=== PATIENT | female | born 1940 | race Caucasian/White ===

== ENCOUNTER → 2018-05-25 | Outpatient (CLI) | payer MEDICARE, OTHER ==
[2018-05-25 10:53] LABS: ABSOLUTE BASOPHILS # (AUTO) 0.1 10^3/uL (0.0-0.2); ABSOLUTE EOSINOPHILS # (AUTO) 0.6 10^3/uL (0.0-0.6); ABSOLUTE LYMPHOCYTES (AUTO) 1.1 10^3/uL (0.5-4.7); ABSOLUTE MONOCYTES (AUTO) 0.5 10^3/uL (0.1-1.4); ABSOLUTE NEUT (AUTO) 2.8 10^3/uL (1.7-8.2); BASOPHILS % (AUTO) 1.2 % (0-2); EOSINOPHILS % (AUTO) 11.8 % (0-6); HEMOGLOBIN 13.3 g/dL (12.0-15.5); LYMPHOCYTES % (AUTO) 21.5 % (13-45); MEAN CORPUSCULAR HEMOGLOBIN 29.5 pg (27.0-33.4); MEAN CORPUSCULAR HGB CONC 33.2 g/dL (32.0-36.0); MEAN CORPUSCULAR VOLUME 89 fl (80-97); MONOCYTES % (AUTO) 9.5 % (3-13); PLATELET COUNT 232 10^3/uL (150-450); RED CELL DISTRIBUTION WIDTH 13.7 % (11.5-14.0); TOTAL CELLS COUNTED % (AUTO) 100 %
[2018-05-25 11:10] LABS: ALANINE AMINOTRANSFERASE 29 U/L (9-52); ALKALINE PHOSPHATASE 80 U/L (38-126); ANION GAP 13 (5-19); ASPARTATE AMINO TRANSFERASE 26 U/L (14-36); BILIRUBIN,DIRECT 0.3 mg/dL (0.0-0.4); BILIRUBIN,TOTAL 0.5 mg/dL (0.2-1.3); BLOOD UREA NITROGEN 20 mg/dL (7-20); CALCIUM 9.3 mg/dL (8.4-10.2); CARBON DIOXIDE 26 mmol/L (22-30); CHLORIDE 109 mmol/L (98-107); CHOLESTEROL 245.32 mg/dL (0-200); GLUCOSE 104 mg/dL (75-110); IRON 80.4 ug/dL (37-170); POTASSIUM 4.6 mmol/L (3.6-5.0); SODIUM 147.8 mmol/L (137-145); TRIGLYCERIDES 223 mg/dL (<150)
[2018-05-25 11:21] LABS: DIRECT LDL 165 mg/dL (<100)
[2018-05-25 11:25] LABS: VLDL CHOLESTEROL 44.6 mg/dL (10-31)
[2018-05-25 11:30] LABS: ERYTHROCYTE SEDIMENTATION RATE 49 mm/hr (0-30)
== END ==
LOC: LAB 10:04
PROVIDERS: ATTEND Internal Medicine
DX: I25.811 Atherosclerosis of native coronary artery of transplanted heart without angina pectoris (principal); I10 Essential (primary) hypertension; D50.9 Iron deficiency anemia, unspecified; J42 Unspecified chronic bronchitis; Z68.28 Body mass index [BMI] 28.0-28.9, adult
CPT/HCPCS: 36415; 80053; 80061; 82306; 83540; 83735; 84443; 85025; 85652

== ENCOUNTER → 2018-06-02 | Outpatient (CLI) | payer MEDICARE, OTHER ==
--- NOTE | 2018-06-02 11:18 | WOMENS IMAGING REPORT ---
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 TECHNIQUE: Dual-Energy X-ray Absorptiometry (DEXA) of the AP Spine and Hip. LIMITATIONS: None. FINDINGS: LUMBAR SPINE: The bone mineral density (BMD) measured from L1-L4 in the AP projection correlates with a T-score of -0.4, which is normal as defined by the World Health Organization. HIP: The bone mineral density (BMD) measured in the left hip correlates with a T-score of -2.4, which is o steopenia as defined by the World Health Organization. IMPRESSION: 1. LUMBAR SPINE: Normal 2. HIP: Osteopenia COMMENT: The World Health Organization defines low BMD as follows: T-score: Normal: Greater than -1.0 Osteopenia: Between -1.0 and -2.5 Osteoporosis: Less than -2.5 without fractures Established osteoporosis: Less than -2.5 with fractures In general, you may wish to consider: Diagnosis Treatment Follow-up DEXA Normal BMD Prevention 2-3 years Osteopenia Prevention/Therapy 1-2 years Osteoporosis Therapy Yearly TECHNICAL DOCUMENTATION: JOB ID: [id number] [employer]- All Rights Reserved Reading location - IP/workstation name: [email or web address]
--- NOTE | 2018-06-02 12:08 | WOMENS IMAGING REPORT ---
EXAM DESCRIPTION: BILAT SCREENING MAMMO W/CAD COMPLETED DATE/TIME: 06/02/2018 11:00 am REASON FOR STUDY: SCREENING MAMMO Z12.31 ENCNTR SCREEN MAMMOGRAM FOR MALIGNANT NEOPLASM OF TRUDY M81. 0 AGE-RELATED OSTEOPOROSIS W/O CURRENT PATHOLOGICAL FRAC COMPARISON: None. TECHNIQUE: Standard craniocaudal and mediolateral oblique views of each breast recorded using digita l acquisition. LIMITATIONS: None. FINDINGS: No masses, calcifications or architectural distortion. No areas of suspicion. Read with the assistance of CAD. .[facility] R2 Cenova Version 1.3 .[facility] Imaging - R2 Cenova Version 1.3 .[facility] Imaging - R2 Cenova Version 2.4 .[facility] [place] Cenova Version 2.4 .[facility] - R2 Clinical Counselor Version 9.2 IMPRESSION: NORMAL MAMMOGRAM. BIRADS 1. BREAST DENSITY: b. There are scattered areas of fibroglandular density. BIRAD: 1 NEGATIVE RECOMMENDATION: ROUTINE SCREENING COMMENT: The patient has been notified of the results by letter per MQSA requirements. Additional no tification policies are in place for contacting patient with suspicious or incomplete findings. Quality ID #225: The [employer] recommends an annual screening mammogram for women aged 40 years or over. This facility utilizes a reminder system to ensure that all patients receive reminder letters, and/or direct phone calls for appointments. This includes reminders for routine scr eening mammograms, diagnostic mammograms, or other Breast Imaging Interventions when appropriate. Th is patient will be placed in the appropriate reminder system. The [employer] (ACR) has developed recommendations for screening MRI of the breast s in certain patient populations, to be used in conjunction with mammography. Breast MRI surveillanc e may be appropriate for women with more than 20% lifetime risk of developing breast cancer as deter mined by genetic testing, significant family history of the disease, or history of mantle radiation f or Hodgkins Disease. ACR Practice Guidelines 2008. TECHNICAL DOCUMENTATION: FINDING NUMBER: (1) ASSESSMENT: (1) JOB ID: [id number] [employer]- All Rights Reserved Reading location - IP/workstation name: [email or web address]
== END ==
LOC: WI 09:15
PROVIDERS: ATTEND Internal Medicine
DX: Z12.31 Encounter for screening mammogram for malignant neoplasm of breast (principal); M81.0 Age-related osteoporosis without current pathological fracture
CPT/HCPCS: 77067; 77080

== ENCOUNTER → 2018-11-11 | Outpatient (CLI) | payer MEDICARE, OTHER ==
[2018-11-11 11:33] LABS: ALANINE AMINOTRANSFERASE 13 U/L (9-52); ALBUMIN 3.9 g/dL (3.5-5.0); ALKALINE PHOSPHATASE 90 U/L (38-126); ASPARTATE AMINO TRANSFERASE 21 U/L (14-36); BILIRUBIN,DIRECT 0.3 mg/dL (0.0-0.4); BILIRUBIN,TOTAL 0.5 mg/dL (0.2-1.3); CHOLESTEROL 267.35 mg/dL (0-200); TOTAL PROTEIN 7.5 g/dL (6.3-8.2); TRIGLYCERIDES 230 mg/dL (<150)
[2018-11-11 11:45] LABS: DIRECT LDL 172 mg/dL (<100)
[2018-11-11 12:41] LABS: CHOLESTEROL 267.35 mg/dL (0-200); DIRECT LDL 172 mg/dL (<100); TRIGLYCERIDES 230 mg/dL (<150)
== END ==
LOC: OD 09:58
PROVIDERS: ATTEND Specialist
DX: I25.10 Atherosclerotic heart disease of native coronary artery without angina pectoris (principal); I25.2 Old myocardial infarction; I10 Essential (primary) hypertension; E78.5 Hyperlipidemia, unspecified; J44.9 Chronic obstructive pulmonary disease, unspecified; I73.9 Peripheral vascular disease, unspecified; E78.49 Other hyperlipidemia; K21.9 Gastro-esophageal reflux disease without esophagitis; Z86.711 Personal history of pulmonary embolism
CPT/HCPCS: 36415; 80061; 80076; 82306; 84443

== ENCOUNTER 2018-12-14 07:32 | Day surgery (SDC) | payer MEDICARE, OTHER ==
[~2018-12-14 07:32] MED LIST: DORZOLAMIDE HCL 2%/TIMOLOL MALEAT 0.5% OPH SOLN 10 ML OS PRN; FENTANYL CITRATE INJ/PF 100 MCG/2 ML AMPUL ONE; KETOROLAC TROMETHAMINE 0.45% 4 DROP/0.4 ML DROPERETTE OS PRN; MIDAZOLAM 2 MG/2 ML INJ ONE
[2018-12-14] MEDS: CYCLOPENTOLATE 0.2%/PHENYLEPHRINE 1% OPH SOLN 2 ML OS PRN ×3 (07:58→08:18)
[2018-12-14] MEDS: BESIFLOXACIN HCL 0.6% OPH SUSP 5 ML BOTTLE OS PRN ×4 (07:58→09:26)
[2018-12-14] MEDS: TROPICAMIDE 1% OPH SOLN 3 ML OS PRN ×3 (07:58→08:18)
[2018-12-14] MEDS: TETRACAINE HCL 0.5% OPH SOLN 4 ML OS PRN ×3 (07:59→09:01)
[2018-12-14] MEDS ORDERED: LIDOCAINE 1% INJ-PF (10 MG/ML) 30 ML SDV ONE (08:12)
[2018-12-14] MEDS ORDERED: CHONDR SU A NA/HYALUR INTRAOC KIT (SURGICARE) ONE (08:12)
[2018-12-14] MEDS ORDERED: EPINEPHRINE INJ/PF 1 MG/1 ML AMPULE ONE (08:12)
--- NOTE | 2018-12-14 21:33 | SURGICARE DISCHARGE SUMMARY E ---
[facility] Discharge Summary NAME: KIESHA CORRALES AGE: 78Y ADMITTED: 12/14/2018 DISCHARGED: 12/14/2018 This is a 78-year-old female who underwent cataract extraction of the left eye. DIAGNOSIS: Cataract, left eye. She underwent surgery because she was having difficulty driving at night secondary to glare from headlights. She should be on a regular diet. No bending at the waist and no heavy lifting. She should use his Besivance, Prolensa, and Durezol at 3:00 p.m. and 8:00 p.m. and sleep with a rigid shield. I will see her for her 1-day postop tomorrow. DICTATING PHYSICIAN: XUAN PINTO M.D. [id number] PHY#: [id number] ID: [id number] JOB#: [id number] ACCT: [id number] cc:XUAN PINTO M.D. >
--- NOTE | 2018-12-14 21:33 | SURGICARE OPERATIVE REPORT E ---
[facility] Operative Report NAME: KIESHA CORRALES AGE: 78Y DATE OF SURGERY: 12/14/2018 ROOM: PREOPERATIVE DIAGNOSIS: CATARACT, LEFT EYE. POSTOPERATIVE DIAGNOSIS: CATARACT, LEFT EYE. OPERATION: Cataract extraction with insertion of an IOL of the left eye. SURGEON: XUAN PINTO M.D. ANESTHESIA: Topical. PROCEDURE: After obtaining appropriate consent, the patient's left eye was prepped and draped in sterile fashion as well as the surgeon in a sterile manner and cataract surgery was started. First a paracentesis blade was used to make a side-port incision. Viscoelastic was used to inflate the anterior chamber. Next a 2.4 mm incision was made with a 2.4 mm blade, clear corneal temporally. A continuous capsulorrhexis was made using a cystotome and Utrata forceps. Following this hydrodissection was carried out to make the lens fully loose and mobile and it was rotated 90 degrees. Following this, a vlymoz-vit-xwadxxv technique was used to phacoemulsify the lens with a CDE of 10.16. The remaining cortex was removed with irrigation/aspiration. Provisc was instilled into the capsular bag to inflate the bag. A SN60WF, 20.5 diopter lens was placed. The remaining viscoelastic material was removed with irrigation/aspiration. Following this, the incision was found to be watertight. Besivance was instilled into the eye and a protective shield was placed over the eye. The patient returned to the postoperative recovery in stable condition. DICTATING PHYSICIAN: XUAN PINTO M.D. [id number] PHY#: [id number] ID: [id number] JOB#: [id number] ACCT: [id number] cc:XUAN PINTO M.D. >
== END 2018-12-14 10:18 | disposition home or self-care (01) ==
LOC: SC 07:32
PROVIDERS: ATTEND Internal Medicine
DX: H25.813 Combined forms of age-related cataract, bilateral (principal); H43.813 Vitreous degeneration, bilateral; H04.121 Dry eye syndrome of right lacrimal gland; E78.00 Pure hypercholesterolemia, unspecified; J44.9 Chronic obstructive pulmonary disease, unspecified; I25.2 Old myocardial infarction; I11.9 Hypertensive heart disease without heart failure; D64.9 Anemia, unspecified; G62.9 Polyneuropathy, unspecified; Z87.891 Personal history of nicotine dependence; Z88.8 Allergy status to other drugs, medicaments and biological substances; Z88.0 Allergy status to penicillin; Z88.3 Allergy status to other anti-infective agents; Z79.51 Long term (current) use of inhaled steroids; Z79.899 Other long term (current) drug therapy; Z79.01 Long term (current) use of anticoagulants; Z79.82 Long term (current) use of aspirin
CPT/HCPCS: 66984; V2632; J2250; J3490 ×3; A9270; J0171; J3010

== ENCOUNTER 2019-01-07 06:31 | Day surgery (SDC) | payer MEDICARE, OTHER ==
[~2019-01-07 06:31] MED LIST changes: -DORZOLAMIDE HCL 2%/TIMOLOL MALEAT 0.5% OPH SOLN 10 ML OS PRN; -FENTANYL CITRATE INJ/PF 100 MCG/2 ML AMPUL ONE; +KETOROLAC TROMETHAMINE 0.45% 4 DROP/0.4 ML DROPERETTE OD PRN; -KETOROLAC TROMETHAMINE 0.45% 4 DROP/0.4 ML DROPERETTE OS PRN; -MIDAZOLAM 2 MG/2 ML INJ ONE
[2019-01-07] MEDS: TROPICAMIDE 1% OPH SOLN 3 ML OD PRN ×3 (06:45→07:08)
[2019-01-07] MEDS: BESIFLOXACIN HCL 0.6% OPH SUSP 5 ML BOTTLE OD PRN ×4 (06:46→07:48)
[2019-01-07] MEDS: CYCLOPENTOLATE 0.2%/PHENYLEPHRINE 1% OPH SOLN 2 ML OD PRN ×3 (06:46→07:08)
[2019-01-07] MEDS: TETRACAINE HCL 0.5% OPH SOLN 4 ML OD PRN ×3 (06:47→07:26)
[2019-01-07] MEDS ORDERED: ONDANSETRON HCL INJ/PF 4 MG/2 ML SDV ONE (07:04)
[2019-01-07] MEDS ORDERED: FENTANYL CITRATE INJ/PF 100 MCG/2 ML AMPUL ONE (07:04)
[2019-01-07] MEDS ORDERED: MIDAZOLAM 2 MG/2 ML INJ ONE (07:04)
[2019-01-07] MEDS ORDERED: EPINEPHRINE INJ/PF 1 MG/1 ML AMPULE ONE (07:05)
[2019-01-07] MEDS ORDERED: CHONDR SU A NA/HYALUR INTRAOC KIT (SURGICARE) ONE (07:06)
[2019-01-07] MEDS ORDERED: LIDOCAINE 1% INJ-PF (10 MG/ML) 30 ML SDV ONE (07:06)
[2019-01-07] MEDS: DORZOLAMIDE HCL 2%/TIMOLOL MALEAT 0.5% OPH SOLN 10 ML OD PRN ×2 (07:48)
--- NOTE | 2019-01-07 21:33 | SURGICARE DISCHARGE SUMMARY E ---
[facility] Discharge Summary NAME: KIESHA CORRALES AGE: 78Y ADMITTED: 01/07/2019 DISCHARGED: This is a 78-year-old female who underwent cataract extraction of her right eye. DIAGNOSIS: Cataract right eye. She underwent surgery because she was having trouble seeing small print. She should be on a regular diet. No bending at the waist and no heavy lifting. She should use her Besivance, Prolensa, and Durezol at 3:00 p.m. and 8:00 p.m. and sleep with a rigid shield. I will see her for her 1-day postop tomorrow. DICTATING PHYSICIAN: XUAN PINTO M.D. [id number] PHY#: [id number] ID: [id number] JOB#: [id number] ACCT: [id number] cc:XUAN PINTO M.D. >
--- NOTE | 2019-01-07 21:33 | [facility]ARE OPERATIVE REPORT E ---
[facility] Operative Report NAME: KIESHA CORRALES AGE: 78Y DATE OF SURGERY: 01/07/2019 ROOM: PREOPERATIVE DIAGNOSIS: CATARACT, RIGHT EYE. POSTOPERATIVE DIAGNOSIS: CATARACT, RIGHT EYE. OPERATION: Cataract extraction with insertion of an IOL of the right eye. SURGEON: XUAN PINTO M.D. ANESTHESIA: Topical. PROCEDURE: After obtaining appropriate consent, the patient's right eye was prepped and draped in sterile fashion as well as the surgeon in a sterile manner and cataract surgery was started. First a paracentesis blade was used to make a side-port incision. Viscoelastic was used to inflate the anterior chamber. Next a 2.4 mm incision was made with a 2.4 mm blade, clear corneal temporally. A continuous capsulorrhexis was made using a cystotome and Utrata forceps. Following this hydrodissection was carried out to make the lens fully loose and mobile and it was rotated 90 degrees. Following this, a xohvrk-fxo-mjisuph technique was used to phacoemulsify the lens with a CDE of 15.11. The remaining cortex was removed with irrigation/aspiration. Provisc was instilled into the capsular bag to inflate the bag. A SN60WF, 20.5 diopter lens was placed. The remaining viscoelastic material was removed with irrigation/aspiration. Following this, the incision was found to be watertight. Besivance was instilled into the eye and a protective shield was placed over the eye. The patient returned to the postoperative recovery in stable condition. DICTATING PHYSICIAN: XUAN PINTO M.D. [id number] PHY#: [id number] ID: [id number] JOB#: [id number] ACCT: [id number] cc:XUAN PINTO M.D. >
== END 2019-01-07 08:25 | disposition home or self-care (01) ==
LOC: SC 06:31
PROVIDERS: ATTEND Internal Medicine
DX: H25.811 Combined forms of age-related cataract, right eye (principal); Z96.1 Presence of intraocular lens; I10 Essential (primary) hypertension; I25.2 Old myocardial infarction; D64.9 Anemia, unspecified; Z79.01 Long term (current) use of anticoagulants; G57.93 Unspecified mononeuropathy of bilateral lower limbs; Z88.8 Allergy status to other drugs, medicaments and biological substances
CPT/HCPCS: 66984; V2632; J2250; J3490 ×3; A9270; J0171; J3010; J2405; 142

== ENCOUNTER → 2019-02-02 | Outpatient (CLI) | payer MEDICARE, OTHER ==
[2019-02-02 14:21] LABS: CHOLESTEROL 252.52 mg/dL (0-200); TRIGLYCERIDES 217 mg/dL (<150)
[2019-02-02 14:33] LABS: DIRECT LDL 150 mg/dL (<100); VLDL CHOLESTEROL 43.4 mg/dL (10-31)
== END ==
LOC: OD 11:54
PROVIDERS: ATTEND Internal Medicine
DX: E78.5 Hyperlipidemia, unspecified (principal)
CPT/HCPCS: 36415; 80061

== ENCOUNTER 2019-05-07 06:49 | Observation (INO) | payer MEDICARE, OTHER ==
[2019-05-07] MEDS ORDERED: ASPIRIN 81 MG TABLET, CHEWABLE PO ONE (07:02)
[2019-05-07 07:50] LABS: ABSOLUTE BASOPHILS # (AUTO) 0.1 10^3/uL (0.0-0.2); ABSOLUTE EOSINOPHILS # (AUTO) 0.9 10^3/uL (0.0-0.6); ABSOLUTE LYMPHOCYTES (AUTO) 0.9 10^3/uL (0.5-4.7); ABSOLUTE MONOCYTES (AUTO) 0.5 10^3/uL (0.1-1.4); ABSOLUTE NEUT (AUTO) 4.6 10^3/uL (1.7-8.2); EOSINOPHILS % (AUTO) 12.5 % (0-6); HEMATOCRIT 38.9 % (36.0-47.0); HEMOGLOBIN 12.9 g/dL (12.0-15.5); LYMPHOCYTES % (AUTO) 12.7 % (13-45); MEAN CORPUSCULAR HEMOGLOBIN 29.4 pg (27.0-33.4); MEAN CORPUSCULAR HGB CONC 33.1 g/dL (32.0-36.0); MEAN CORPUSCULAR VOLUME 89 fl (80-97); MONOCYTES % (AUTO) 6.8 % (3-13); PLATELET COUNT 203 10^3/uL (150-450); RED BLOOD COUNT 4.38 10^6/uL (3.72-5.28); RED CELL DISTRIBUTION WIDTH 13.3 % (11.5-14.0); TOTAL CELLS COUNTED % (AUTO) 100 %; WHITE BLOOD COUNT 6.8 10^3/uL (4.0-10.5)
--- NOTE | 2019-05-07 08:01 | RADIOLOGY REPORT (SQ) ---
EXAM DESCRIPTION: CHEST SINGLE VIEW COMPLETED DATE/TIME: 05/07/2019 7:38 am REASON FOR STUDY: CP COMPARISON: None. EXAM PARAMETERS: NUMBER OF VIEWS: One view. TECHNIQUE: Single frontal radiographic view of the chest acquired. RADIATION DOSE: NA LIMITATIONS: None. FINDINGS: LUNGS AND PLEURA: Heterogeneous opacity of the left lung base. MEDIASTINUM AND HILAR STRUCTURES: No masses. Contour normal. HEART AND VASCULAR STRUCTURES: Cardiomegaly. BONES: No acute findings. HARDWARE: None in the chest. OTHER: No other significant finding. IMPRESSION: Heterogeneous opacity of the left lung base, concerning for infection or aspiration. Th is may be chronic scarring or atelectasis. Cardiomegaly. TECHNICAL DOCUMENTATION: JOB ID: [id number] [employer]- All Rights Reserved Reading location - IP/workstation name: [email or web address]
[2019-05-07 08:26] LABS: ALANINE AMINOTRANSFERASE 24 U/L (9-52); ALBUMIN 3.5 g/dL (3.5-5.0); ALKALINE PHOSPHATASE 68 U/L (38-126); ANION GAP 7 (5-19); ASPARTATE AMINO TRANSFERASE 34 U/L (14-36); BILIRUBIN,DIRECT 0.3 mg/dL (0.0-0.4); BILIRUBIN,TOTAL 0.8 mg/dL (0.2-1.3); BLOOD UREA NITROGEN 22 mg/dL (7-20); CARBON DIOXIDE 24 mmol/L (22-30); CHLORIDE 110 mmol/L (98-107); CREATINE KINASE 253 U/L (30-135); GLUCOSE 119 mg/dL (75-110); POTASSIUM 4.4 mmol/L (3.6-5.0); SODIUM 141.1 mmol/L (137-145); TOTAL PROTEIN 7.2 g/dL (6.3-8.2)
[2019-05-07 08:28] LABS: TROPONIN I < 0.012 ng/mL
--- NOTE | 2019-05-07 12:58 | ER Document Report ---
Entered by RIDDHI GUEVARA SCRIBE 05/07/19 1123 Acting as scribe for:TAMI POTTS MD ED General - General Chief Complaint: Chest Pain Stated Complaint: CHEST PAIN Time Seen by Provider: 05/07/19 09:18 Information source: Patient Notes: Patient is a 78-year-old female presenting to the emergency department complaining of chest pain. Patient states that she woke up this morning at 0300 with chest pain that was constant. Patient states that since she has been in the emergency department the pain is intermittent. Patient states that she took melena, a medication she normally takes in this situation to alleviate the pain but it did not help. Patient states that she had cold sweats post taking the melena for 5 minutes and then it went away. Patient states that she has had nausea and has been vomiting, she notes that her vomit was clear. Patient states that after having a hiatal hernia she took Protonix for and she is currently not taking it. Patient denies having any feeling of pressure on her chest. TRAVEL OUTSIDE OF THE [place] IN LAST 30 DAYS: No - Related Data Allergies/Adverse Reactions: amoxicillin Allergy (Severe, Verified 05/07/19 07:01) clavulanic acid [From Augmentin] Allergy (Severe, Verified 05/07/19 07:01) ipratropium Allergy (Severe, Verified 05/07/19 07:01) ciprofloxacin [From Cipro] Allergy (Intermediate, Verified 05/07/19 07:01) ezetimibe [From Zetia] Allergy (Intermediate, Verified 05/07/19 07:01) simvastatin Allergy (Intermediate, Verified 05/07/19 07:01) clarithromycin [From Biaxin] Adverse Reaction (Mild, Verified 05/07/19 07:01) lisinopril Adverse Reaction (Mild, Verified 05/07/19 07:01) Past Medical History - General Information source: Patient - Social History Smoking Status: Former Smoker - Quit in 2014 Cigarette use (# per day): No Chew tobacco use (# tins/day): No Smoking Education Provided: No Frequency of alcohol use: None Drug Abuse: None Lives with: Family Family History: Reviewed & Not Pertinent Patient has suicidal ideation: No Patient has homicidal ideation: No - Past Medical History Cardiac Medical History: Reports: Hx Heart Attack, Hx Hypercholesterolemia, Hx Hypertension Pulmonary Medical History: Reports: Hx COPD - Patient states that 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 tuck 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 mentioned to monitor left lower lung GI Medical History: Reports: Hx Hiatal Hernia Past Surgical History: Reports: Hx Cardiac Catheterization, Hx Cholecystectomy, Hx Coronary Stent - 1 performed in 2011, 1 performed in 2014 Review of Systems - Review of Systems Constitutional: No symptoms reported EENT: No symptoms reported Cardiovascular: See HPI, Chest pain Respiratory: No symptoms reported Gastrointestinal: See HPI, Nausea, Vomiting Genitourinary: No symptoms reported Female Genitourinary: No symptoms reported Musculoskeletal: No symptoms reported Skin: No symptoms reported Hematologic/Lymphatic: No symptoms reported Neurological/Psychological: No symptoms reported -: Yes All other systems reviewed and negative Physical Exam - Vital signs Vitals: Temp Resp BP Pulse Ox 97.7 F 17 164/75 H 92 05/07/19 06:55 05/07/19 06:55 05/07/19 06:55 05/07/19 06:55 - Notes Notes: Physical Exam: General: Alert, appears well. HEENT: Normocephalic. Atraumatic. PERRL. Extraocular movements intact. Oropharynx clear. Neck: Supple. Non-tender. Respiratory: No respiratory distress. Clear and equal breath sounds bilaterally. Cardiovascular: Regular rate and rhythm. Abdominal: Epigastric tenderness to palpation. No distension. Normal Bowel Sounds. Back: Non-tender. No deformity or step off. Extremities: Moves all four extremities. Upper extremities: Normal inspection. Normal ROM. Lower extremities: Normal inspection. No edema. Normal ROM. Neurological: Normal cognition. AAOx4. Normal speech. Psychological: Normal affect. Normal Mood. Skin: Warm. Dry. Normal color. Course - Vital Signs Vital signs: Temp Pulse Resp BP Pulse Ox 97.9 F 69 17 143/96 H 93 05/08/19 10:00 05/08/19 10:00 05/08/19 10:00 05/08/19 10:00 05/08/19 10:00 - Laboratory Result Diagrams: 05/08/19 01:49 05/08/19 01:49 Laboratory results interpreted by me: 05/07/19 05/07/19 07:25 07:25 Lymphocytes % 12.7 L Eosinophils % 12.5 H Absolute Eosinophils 0.9 H Chloride 110 H BUN 22 H Est GFR (Non-Af Amer) 53 L Glucose 119 H Creatine Kinase 253 H - Diagnostic Test Radiology reviewed: Image reviewed, Reports reviewed Discharge - Discharge Clinical Impression: Chest pain Qualifiers: Chest pain type: unspecified Qualified Code(s): R07.9 - Chest pain, unspecified Coronary artery disease Qualifiers: Coronary Disease-Associated Artery/Lesion type: unspecified vessel or lesion type [place] vs. transplanted heart: [place] heart Associated angina: angina presence unspecified Qualified Code(s): I25.10 - Atherosclerotic heart disease of [place] coronary artery without angina pectoris Condition: Good Disposition: ADMITTED INPATIENT Admitting Provider: Bradley (Hospitalist) Unit Admitted: Telemetry Scribe Attestation: 05/07/19 13:12 I personally performed the services described in the documentation, reviewed and edited the documentation which was dictated to the scribe in my presence, and it accurately records my words and actions. I personally performed the services described in the documentation, reviewed and edited the documentation which was dictated to the scribe in my presence, and it accurately records my words and actions.
[2019-05-07] MEDS ORDERED: ONDANSETRON HCL INJ/PF 4 MG/2 ML SDV IV PRN (13:45)
[2019-05-07] MEDS ORDERED: LEVALBUTEROL HCL NEB 0.63 MG/3 ML AMPUL NEB PRN (13:45)
[2019-05-07] MEDS ORDERED: ALBUTEROL SULFATE HFA (90 MCG/PUFF) 200 PUFF/8.5 GM MDI IH PRN (13:53)
--- NOTE | 2019-05-07 14:05 | PDOC H&P ---
History of Present Illness Admission Date/PCP: 05/07/19 13:22 BRIDGETTE HOLDER MD Patient complains of: Chest pain History of Present Illness: KIESHA CORRALES is a 78 year old female with history of TN and stent placements twice hypertension severe peripheral vascular disease hyperlipidemia, hiatal hernia came to the emergency room complaints of chest pains. Initially she thought it was abdominal pain and pain that radiated to the epigastrium to the left-sided chest she decided to came to the emergency room for further evaluation. In the emergency room 2 sets of troponins are negative EKG no acute abnormalities. Medical consult was called for admission to rule out TN. 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 to monitor left lower lung Denies: Asthma Neurological Medical History: Denies: Seizures GI Medical History: Reports: Hiatal Hernia Denies: Hepatitis Hematology: Reports: Anemia - IRON Denies: Sickle Cell Disease Past Surgical History Past Surgical History: Reports: Cardiac Catheterization, Cholecystectomy, Coronary Stent - 1 performed in 2011, 1 performed in 2014 Denies: Amputation, Hysterectomy, Mastectomy, Pacemaker Social History Smoking Status: Former Smoker - Quit in 2014 Frequency of Alcohol Use: None Drugs: None - Advance Directive Resuscitation Status: Full Code Family History Parental Family History Reviewed: Yes - Mother with liver cancer in father with prostate cancer. Children Family History Reviewed: Yes Sibling(s) Family History Reviewed.: Yes Medication/Allergy Home Medications: Albuterol Sulfate [Proair HFA Inhalation Aerosol 8.5 gm MDI] 2 puff IH Q6HP PRN 05/07/19 Apixaban [Eliquis 5 mg Tablet] 5 mg PO BID 05/07/19 Aspirin [Aspirin 81 mg Chewable Tablet] 81 mg PO DAILY 05/07/19 Cholecalciferol (Vitamin D3) [Vitamin D] 2,000 unit PO DAILY 05/07/19 Cyanocobalamin (Vitamin B-12) [Vitamin B-12 500 mcg Tablet] 500 mcg PO DAILY 05/07/19 Fluticasone/Salmeterol [Advair 250-50 Diskus 14 Dose/Diskus] 1 puff IH Q12 05/07/19 Losartan Potassium [Cozaar 25 mg Tablet] 25 mg PO DAILY 05/07/19 Allergies/Adverse Reactions: amoxicillin Allergy (Severe, Verified 05/07/19 07:01) clavulanic acid [From Augmentin] Allergy (Severe, Verified 05/07/19 07:01) ipratropium Allergy (Severe, Verified 05/07/19 07:01) ciprofloxacin [From Cipro] Allergy (Intermediate, Verified 05/07/19 07:01) ezetimibe [From Zetia] Allergy (Intermediate, Verified 05/07/19 07:01) simvastatin Allergy (Intermediate, Verified 05/07/19 07:01) clarithromycin [From Biaxin] Adverse Reaction (Mild, Verified 05/07/19 07:01) lisinopril Adverse Reaction (Mild, Verified 05/07/19 07:01) Review of Systems Constitutional: PRESENT: as per HPI. ABSENT: fatigue, fever(s), weakness Eyes: ABSENT: visual disturbances Ears: ABSENT: hearing changes Nose, Mouth, and Throat: ABSENT: sore throat Cardiovascular: PRESENT: chest pain Respiratory: ABSENT: dyspnea, hemoptysis, sputum, other Gastrointestinal: ABSENT: coffee ground emesis, diarrhea, dysphagia, heartburn, hematemesis, nausea, vomiting Genitourinary: ABSENT: dysuria, hematuria Integumentary: ABSENT: rash, wounds Neurological: ABSENT: abnormal gait, abnormal speech, confusion, dizziness, focal weakness, syncope Psychiatric: ABSENT: anxiety, depression, homidical ideation, suicidal ideation Physical Exam Vital Signs: Temp Pulse Resp BP Pulse Ox 97.8 F 15 173/77 H 93 05/07/19 07:01 05/07/19 06:56 05/07/19 07:01 05/07/19 07:06 General appearance: PRESENT: no acute distress Head exam: PRESENT: atraumatic Eye exam: PRESENT: PERRLA Mouth exam: PRESENT: dry mucosa Teeth exam: PRESENT: poor dentation Neck exam: ABSENT: carotid bruit, JVD, lymphadenopathy, thyromegaly Respiratory exam: PRESENT: clear to auscultation jose. ABSENT: rales, rhonchi, wheezes Cardiovascular exam: PRESENT: RRR. ABSENT: diastolic murmur, rubs, systolic murmur GI/Abdominal exam: PRESENT: normal bowel sounds, soft. ABSENT: distended, guarding, mass, organolmegaly, rebound, tenderness Rectal exam: PRESENT: deferred Neurological exam: PRESENT: alert Results Laboratory Results: 05/07/19 07:25 05/07/19 07:25 05/07/19 05/07/19 07:25 07:25 WBC 6.8 RBC 4.38 Hgb 12.9 Hct 38.9 MCV 89 MCH 29.4 MCHC 33.1 RDW 13.3 Plt Count 203 Seg Neutrophils % 67.0 Lymphocytes % 12.7 L Monocytes % 6.8 Eosinophils % 12.5 H Basophils % 1.0 Absolute Neutrophils 4.6 Absolute Lymphocytes 0.9 Absolute Monocytes 0.5 Absolute Eosinophils 0.9 H Absolute Basophils 0.1 Sodium 141.1 Potassium 4.4 Chloride 110 H Carbon Dioxide 24 Anion Gap 7 BUN 22 H Creatinine 1.02 Est GFR ( Amer) > 60 Est GFR (Non-Af Amer) 53 L Glucose 119 H Calcium 9.0 Total Bilirubin 0.8 AST 34 ALT 24 Alkaline Phosphatase 68 Total Protein 7.2 Albumin 3.5 05/07/19 05/07/19 05/07/19 07:25 07:25 11:25 Creatine Kinase 253 H CK-MB (CK-2) 2.20 Troponin I < 0.012 < 0.012 Impressions: Chest X-Ray 05/07/19 07:02 IMPRESSION: Heterogeneous opacity of the left lung base, concerning for infection or aspiration. This may be chronic scarring or atelectasis. Cardiom egaly. Assessment and Plan - Diagnosis (1) Chest pain Qualifiers: Chest pain type: unspecified Qualified Code(s): R07.9 - Chest pain, unspecified Is this a current diagnosis for this admission?: Yes Plan: 05/07/2019-patient is going to be admitted to telemetry for chest pains. Serial CPKs and troponins are requested. Started on aspirin, Zantac and placed on Lovenox. GI prophylaxis was initiated. Placed on oxygen 2 L nasal cannula. Statins were initiated. To check the lipid panel tomorrow. Consultation with Dr. Felipe was requested. Follow-up EKG will be done. (2) Coronary artery disease Qualifiers: Coronary Disease-Associated Artery/Lesion type: unspecified vessel or lesion type [place] vs. transplanted heart: [place] heart Associated angina: angina presence unspecified Qualified Code(s): I25.10 - Atherosclerotic heart disease of [place] coronary artery without angina pectoris Is this a current diagnosis for this admission?: No Plan: 05/07/2019-patient has history of coronary artery disease status post [place] stent placements twice. Came in with chest pain. Started on Brilinta, Lovenox, statins. Lipid panel was requested. Cardiology consult was requested. EKG was nonspecific changes. (3) HTN (hypertension) Is this a current diagnosis for this admission?: No Plan: 05/07/2019-blood pressure today is 177/73. Elevated blood pressure. Patient is taking Coreg and start on at home, dose medications are resumed during the hospital stay. (4) Hiatal hernia Is this a current diagnosis for this admission?: No Plan: 05/07/2019-patient given the history of hiatal hernia with gastritis used to take Protonix until 2 years ago. Maybe this pain is due to gastritis caused by hiatal hernia. Started on Protonix 40 mg p.o. twice daily. - Time Time Spent with patient: 25-34 minutes Medications reviewed and adjusted accordingly: Yes Anticipated discharge: Home
[2019-05-07] MEDS: SUCRALFATE 1 GM TABLET PO SCH ×2 (17:54→22:00)
[2019-05-07] MEDS: PANTOPRAZOLE SODIUM 40 MG TABLET.DR PO SCH (17:54)
[2019-05-07] MEDS: TICAGRELOR 90 MG TABLET PO SCH (19:10)
[2019-05-07] MEDS ORDERED: ATORVASTATIN CALCIUM 10 MG TABLET PO SCH (22:00)
[2019-05-07] MEDS ORDERED: FAMOTIDINE 20 MG TABLET PO SCH (22:00)
[2019-05-07] MEDS ORDERED: (PENDING PHARMACY ID) (Fluticasone/Salmeterol 1 PUFF) IH SCH (22:00)
[2019-05-08] MEDS: SUCRALFATE 1 GM TABLET PO SCH (06:26)
[2019-05-08] MEDS: PANTOPRAZOLE SODIUM 40 MG TABLET.DR PO SCH (06:26)
[2019-05-08 06:33] LABS: ABSOLUTE BASOPHILS # (AUTO) 0.1 10^3/uL (0.0-0.2); ABSOLUTE LYMPHOCYTES (AUTO) 0.9 10^3/uL (0.5-4.7); ABSOLUTE MONOCYTES (AUTO) 0.5 10^3/uL (0.1-1.4); ABSOLUTE NEUT (AUTO) 3.8 10^3/uL (1.7-8.2); EOSINOPHILS % (AUTO) 15.5 % (0-6); HEMATOCRIT 37.9 % (36.0-47.0); HEMOGLOBIN 12.8 g/dL (12.0-15.5); LYMPHOCYTES % (AUTO) 14.8 % (13-45); MEAN CORPUSCULAR HGB CONC 33.9 g/dL (32.0-36.0); MEAN CORPUSCULAR VOLUME 88 fl (80-97); MONOCYTES % (AUTO) 7.5 % (3-13); PLATELET COUNT 186 10^3/uL (150-450); RED BLOOD COUNT 4.29 10^6/uL (3.72-5.28); RED CELL DISTRIBUTION WIDTH 13.6 % (11.5-14.0); SEGMENTED NEUTROPHILS % (AUTO) 61.2 % (42-78); TOTAL CELLS COUNTED % (AUTO) 100 %; WHITE BLOOD COUNT 6.3 10^3/uL (4.0-10.5)
[2019-05-08 06:41] LABS: ALANINE AMINOTRANSFERASE 27 U/L (9-52); ALBUMIN 3.4 g/dL (3.5-5.0); ALKALINE PHOSPHATASE 77 U/L (38-126); ANION GAP 9 (5-19); ASPARTATE AMINO TRANSFERASE 28 U/L (14-36); BILIRUBIN,DIRECT 0.3 mg/dL (0.0-0.4); BILIRUBIN,TOTAL 0.6 mg/dL (0.2-1.3); BLOOD UREA NITROGEN 20 mg/dL (7-20); CALCIUM 8.9 mg/dL (8.4-10.2); CARBON DIOXIDE 21 mmol/L (22-30); CHLORIDE 110 mmol/L (98-107); CHOLESTEROL 208.64 mg/dL (0-200); GLUCOSE 101 mg/dL (75-110); LIPASE 306.1 U/L (23-300); POTASSIUM 4.3 mmol/L (3.6-5.0); SODIUM 139.7 mmol/L (137-145); TOTAL PROTEIN 6.7 g/dL (6.3-8.2); TRIGLYCERIDES 169 mg/dL (<150)
[2019-05-08 06:54] LABS: DIRECT LDL 147 mg/dL (<100)
[2019-05-08 06:58] LABS: VLDL CHOLESTEROL 33.8 mg/dL (10-31)
[2019-05-08 08:32] VITALS: BP 143/96
[2019-05-08] MEDS: TICAGRELOR 90 MG TABLET PO SCH (09:16)
[2019-05-08] MEDS ORDERED: ASPIRIN 81 MG TABLET, CHEWABLE PO SCH (10:00)
[2019-05-08] MEDS ORDERED: CHOLECALCIFEROL (D3) 1,000 UNIT (25 MCG) TABLET PO SCH (10:00)
[2019-05-08] MEDS ORDERED: (PENDING PHARMACY ID) (Cyanocobalamin (Vitamin B-12) [Vitamin B-12 500 Mcg Tablet] 500 MCG PO SCH (10:00)
[2019-05-08] MEDS ORDERED: ENOXAPARIN SODIUM INJ 40 MG/0.4 ML DISP.SYRIN SUBCUT SCH (10:00)
[2019-05-08] MEDS ORDERED: LOSARTAN POTASSIUM 25 MG TABLET PO SCH (10:00)
[2019-05-08] MEDS ORDERED: FLUTICASONE/VILANTEROL 200-25 MCG/DOSE IH SCH (10:00)
[2019-05-08] MEDS ORDERED: CYANOCOBALAMIN (VITAMIN B-12) 1,000 MCG TABLET PO SCH (10:00)
[2019-05-08] MEDS ORDERED: (PENDING PHARMACY ID) (Cholecalciferol (Vitamin D3) [Vitamin D3] 2,000 UNIT) PO SCH (10:00)
--- NOTE | 2019-05-08 13:04 | PDOC DISCHARGE SUMMARY ---
General - Admit/Disc Date/PCP Admission Date/Primary Care Provider: 05/07/19 13:22 BRIDGETTE HOLDER MD Discharge Date: 05/08/19 - Discharge Diagnosis (1) Chest pain Is this a current diagnosis for this admission?: Yes Summary: The patient in fact had 5 troponin levels checked. All were less than 0.012. Despite history of myocardial infarction this pain is not cardiogenic. We will continue her current medications. (2) Coronary artery disease Is this a current diagnosis for this admission?: Yes Summary: She does have a history of coronary artery disease. Work-up for the chest pain revealed a noncardiac source. She was recently started on Brilinta and taken off apixaban. She also has does not tolerate statins or Zetia. She is on losartan as well as aspirin daily. These will be continued on discharge. She does have a follow-up appointment scheduled Dr. Felipe. (3) HTN (hypertension) Is this a current diagnosis for this admission?: Yes Summary: She will resume her previous antihypertensive regimen. Her blood pressures were slightly elevated. This certainly could be due to the stress of chest pain with her cardiac history. Medication adjustments can be made upon reevaluation as an outpatient. (4) Hiatal hernia Is this a current diagnosis for this admission?: Yes Summary: Patient has history of hiatal hernia. She had excellent relief when given Carafate and Protonix. She was on Protonix in the past. She was taken off of it as this is truly meant for short-term use. I will resume Protonix for 30 days and Carafate 1 g q. before meals and at bedtime as this was a very effective regimen. If she weans from these medications and has recurrent pain she may consider gastroenterology evaluation. - Additional Information Resuscitation Status: Do Not Resuscitate Prescriptions: Pantoprazole Sodium [Protonix [address] Tablet] 40 mg PO DAILY 30 Days #30 tablet. Sucralfate [Carafate 1 gm Tablet] 1 gm PO ACHS 30 Days #120 tablet Home Medications: Albuterol Sulfate [Proair HFA Inhalation Aerosol 8.5 gm MDI] 2 puff IH Q6HP PRN 05/07/19 Aspirin [Aspirin 81 mg Chewable Tablet] 81 mg PO DAILY 05/07/19 Cholecalciferol (Vitamin D3) [Vitamin D3] 2,000 unit PO DAILY 05/07/19 Cyanocobalamin (Vitamin B-12) [Vitamin B-12 50 mcg Tablet] 50 mcg PO DAILY 05/07/19 Fluticasone/Salmeterol [Advair 250-50 Diskus 14 Dose/Diskus] 1 puff IH Q12 05/07/19 Losartan Potassium [Cozaar 25 mg Tablet] 25 mg PO DAILY 05/07/19 Pantoprazole Sodium [Protonix [address] Tablet] 40 mg PO DAILY 30 Days #30 tablet.dr 05/08/19 Sucralfate [Carafate 1 gm Tablet] 1 gm PO ACHS 30 Days #120 tablet 05/08/19 Ticagrelor [Brilinta 90 mg Tablet] 90 mg PO BID tablet 05/08/19 History of Present Illness Patient complains of: Chest pain History of Present Illness: KIESHA CORRALES is a 78 year old female with a history of coronary artery disease and myocardial infarction. She had also has hypertension, hy perlipidemia and hiatal hernia. Earlier in the day she developed discomfort. She thought it was gastrointestinal mediated however when it spread to the left chest and increased in severity she decided to present to the emergency department. Because of her history and legitimacy of her story she was referred to the hospital service for admission for rule out. Hospital Course Hospital Course: The patient had benign hospital course. In fact when she was given Protonix and Carafate her symptoms resolved. She had 5- troponin studies. I reassured her that the discomfort was noncardiac and in fact mediated by her first suspicion which is the GI tract. We discussed a 30-day trial of the Protonix and Carafate and reassessment afterwards. She will be seeing Dr. Felipe as well. Physical Exam Vital Signs: Temp Pulse Resp BP Pulse Ox 97.9 F 68 17 143/96 H 93 05/08/19 07:39 05/08/19 07:39 05/08/19 07:39 05/08/19 07:39 05/08/19 07:39 Intake & Output 05/07/19 05/08/19 05/09/19 06:59 06:59 06:59 Intake Total 360 Balance 360 Weight 67.5 kg General appearance: PRESENT: no acute distress, cooperative, well-developed Mouth exam: PRESENT: moist, tongue midline Respiratory exam: PRESENT: clear to auscultation jose, symmetrical, unlabored. ABSENT: crackles, rales, rhonchi, tachypnea, wheezes Cardiovascular exam: PRESENT: RRR, +S1, +S2 GI/Abdominal exam: PRESENT: normal bowel sounds, soft. ABSENT: distended, tenderness Neurological exam: PRESENT: alert, awake, oriented to person, oriented to place, oriented to time, oriented to situation, CN II-XII grossly intact Psychiatric exam: PRESENT: appropriate affect, normal mood. ABSENT: agitated, anxious Focused psych exam: ABSENT: delusional, restlessness Results Laboratory Results: 05/08/19 01:49 05/08/19 01:49 05/08/19 05/08/19 05/08/19 01:49 01:49 01:49 WBC 6.3 RBC 4.29 Hgb 12.8 Hct 37.9 MCV 88 MCH 30.0 MCHC 33.9 RDW 13.6 Plt Count 186 Seg Neutrophils % 61.2 Lymphocytes % 14.8 Monocytes % 7.5 Eosinophils % 15.5 H Basophils % 1.0 Absolute Neutrophils 3.8 Absolute Lymphocytes 0.9 Absolute Monocytes 0.5 Absolute Eosinophils 1.0 H Absolute Basophils 0.1 Sodium 139.7 Potassium 4.3 Chloride 110 H Carbon Dioxide 21 L Anion Gap 9 BUN 20 Creatinine 0.88 Est GFR ( Amer) > 60 Est GFR (Non-Af Amer) > 60 Glucose 101 Calcium 8.9 Magnesium 2.1 Total Bilirubin 0.6 AST 28 ALT 27 Alkaline Phosphatase 77 Total Protein 6.7 Albumin 3.4 L Triglycerides 169 H Cholesterol 208.64 H LDL Cholesterol Direct 147 H VLDL Cholesterol 33.8 H HDL Cholesterol 32 L Lipase 306.1 H TSH 1.21 05/07/19 05/07/19 05/07/19 07:25 07:25 11:25 Creatine Kinase 253 H CK-MB (CK-2) 2.20 Troponin I < 0.012 < 0.012 NT-Pro-B Natriuret Pep 05/07/19 05/07/19 05/07/19 14:20 14:20 20:07 Creatine Kinase 211 H 146 H CK-MB (CK-2) Troponin I < 0.012 NT-Pro-B Natriuret Pep 05/07/19 05/08/19 05/08/19 20:07 01:49 01:49 Creatine Kinase 155 H CK-MB (CK-2) Troponin I < 0.012 < 0.012 NT-Pro-B Natriuret Pep 05/08/19 01:49 Creatine Kinase CK-MB (CK-2) Troponin I NT-Pro-B Natriuret Pep 0 H Impressions: Chest X-Ray 05/07/19 07:02 IMPRESSION: Heterogeneous opacity of the left lung base, concerning for infection or aspiration. This may be chronic scarring or atelectasis. Cardiomegaly. Qualifiers - * PATIENT BEING DISCHARGED WITH ANY OF THE FOLLOWING DIAGNOSIS: No Acute Heart Failure - Is this a Heart Failure Patient?: No Plan Discharge Plan: As above Time Spent: Greater than 30 Minutes
--- NOTE | 2019-05-08 23:44 | EKG REPORT ---
SEVERITY:- ABNORMAL ECG - SINUS RHYTHM PROBABLE INFERIOR INFARCT, OLD PROBABLE ANTEROSEPTAL INFARCT, AGE INDETERM : Confirmed by: Merrick Rodríguez 08-May-2019 23:43:53
--- NOTE | 2019-05-08 23:45 | EKG REPORT ---
SEVERITY:- ABNORMAL ECG - SINUS RHYTHM ABNRM R PROG, CONSIDER ASMI OR LEAD PLACEMENT BORDERLINE T ABNORMALITIES, ANTERIOR LEADS : Confirmed by: Merrick Rodríguez 08-May-2019 23:44:18
== END 2019-05-08 11:55 | disposition home or self-care (01) ==
LOC: ER 06:49 → INTOOBSV 13:22 → EH 13:22 → 5 15:21
PROVIDERS: ADMIT Internal Medicine; ATTEND Internal Medicine
DX: R07.89 Other chest pain (principal); I25.2 Old myocardial infarction; Z95.5 Presence of coronary angioplasty implant and graft; I10 Essential (primary) hypertension; J44.9 Chronic obstructive pulmonary disease, unspecified; E78.5 Hyperlipidemia, unspecified; K44.9 Diaphragmatic hernia without obstruction or gangrene; Z66 Do not resuscitate; I73.9 Peripheral vascular disease, unspecified; Z79.82 Long term (current) use of aspirin; Z79.899 Other long term (current) drug therapy; Z90.49 Acquired absence of other specified parts of digestive tract; Z87.891 Personal history of nicotine dependence; Z88.1 Allergy status to other antibiotic agents; Z88.8 Allergy status to other drugs, medicaments and biological substances
CPT/HCPCS: 93005 ×2; 36415 ×2; 82553; 82550 ×2; 83690; 83735; 84443; 85025 ×2; 80053 ×2; 84484 ×2; 83036; 80061; 83880; 71045; 93010; 94640; A9270 ×9; J3490 ×5; J2405; G0378; J7614

== ENCOUNTER → 2019-08-16 | Outpatient (CLI) | payer MEDICARE, OTHER ==
--- NOTE | 2019-08-16 14:09 | WOMENS IMAGING REPORT ---
EXAM DESCRIPTION: 3D SCREENING MAMMO BILAT COMPLETED DATE/TIME: 08/16/2019 10:27 am REASON FOR STUDY: Z12.31 SCREENING MAMMO Z12.31 ENCNTR SCREEN MAMMOGRAM FOR MALIGNANT NEOPLASM OF B RE COMPARISON: 2018 EXAM PARAMETERS: Views: Standard craniocaudal and mediolateral oblique views of each breast recorded using digital acquisition and breast tomosynthesis. Read with the assistance of CAD. .[facility] - R2 Traffic Or System Dispatcher Version 9.2 LIMITATIONS: None. FINDINGS: No suspicious masses, suspicious calcifications or architectural distortion. No areas of c oncern. IMPRESSION: NEGATIVE MAMMOGRAM. BIRADS 1. BREAST DENSITY: b. There are scattered areas of fibroglandular density. BIRAD: ASSESSMENT: 1 NEGATIVE RECOMMENDATION: ROUTINE SCREENING Please continue yearly bilateral screening mammography/tomosynthesis in August 2020. COMMENT: The patient has been notified of the results by letter per MQSA requirements. Additional no tification policies are in place for contacting patient with suspicious or incomplete findings. Quality ID #[id number]: The [employer] recommends an annual screening mammogram for women aged 40 years or over. This facility utilizes a reminder system to ensure that all patients receive reminder letters, and/or direct phone calls for appointments. This includes reminders for routine scr eening mammograms, diagnostic mammograms, or other Breast Imaging Interventions when appropriate. Th is patient will be placed in the appropriate reminder system. TECHNICAL DOCUMENTATION: FINDING NUMBER: (1) ASSESSMENT: (1) JOB ID: [id number] [employer]- All Rights Reserved Reading location - IP/workstation name: [email or web address]
== END ==
LOC: WI 09:45
PROVIDERS: ATTEND Family Medicine
DX: Z12.31 Encounter for screening mammogram for malignant neoplasm of breast (principal)
CPT/HCPCS: 77063; 77067

== ENCOUNTER → 2020-02-09 | Outpatient (CLI) | payer MEDICARE, OTHER ==
[2020-02-09 12:40] LABS: ALKALINE PHOSPHATASE 89 U/L (38-126); ANION GAP 8 (5-19); ASPARTATE AMINO TRANSFERASE 28 U/L (14-36); BILIRUBIN,DIRECT 0.3 mg/dL (0.0-0.4); BILIRUBIN,TOTAL 0.6 mg/dL (0.2-1.3); BLOOD UREA NITROGEN 16 mg/dL (7-20); CALCIUM 9.7 mg/dL (8.4-10.2); CARBON DIOXIDE 26 mmol/L (22-30); CHLORIDE 105 mmol/L (98-107); CHOLESTEROL 267.61 mg/dL (0-200); GLUCOSE 114 mg/dL (75-110); POTASSIUM 4.8 mmol/L (3.6-5.0); TOTAL PROTEIN 8.1 g/dL (6.3-8.2); TRIGLYCERIDES 377 mg/dL (<150)
[2020-02-09 12:51] LABS: DIRECT LDL 167 mg/dL (<100)
[2020-02-09 12:56] LABS: VLDL CHOLESTEROL 75.4 mg/dL (10-31)
== END ==
LOC: OD 11:18
PROVIDERS: ATTEND Family Medicine
DX: E55.9 Vitamin D deficiency, unspecified (principal); E78.2 Mixed hyperlipidemia; Z13.1 Encounter for screening for diabetes mellitus
CPT/HCPCS: 36415; 80053; 80061; 82306

== ENCOUNTER → 2020-08-01 | Outpatient (CLI) | payer MEDICARE, OTHER ==
[2020-08-01 11:02] LABS: ALBUMIN 3.9 g/dL (3.5-5.0); ALKALINE PHOSPHATASE 94 U/L (38-126); ASPARTATE AMINO TRANSFERASE 26 U/L (14-36); BILIRUBIN,DIRECT 0.3 mg/dL (0.0-0.4); BILIRUBIN,TOTAL 0.5 mg/dL (0.2-1.3); CHOLESTEROL 200.75 mg/dL (0-200); TOTAL PROTEIN 7.7 g/dL (6.3-8.2); TRIGLYCERIDES 167 mg/dL (<150)
[2020-08-01 11:15] LABS: DIRECT LDL 138 mg/dL (<100)
[2020-08-01 11:17] LABS: VLDL CHOLESTEROL 33.4 mg/dL (10-31)
== END ==
LOC: OD 09:18
PROVIDERS: ATTEND Specialist
DX: I25.10 Atherosclerotic heart disease of native coronary artery without angina pectoris (principal); I10 Essential (primary) hypertension; I25.5 Ischemic cardiomyopathy; J44.9 Chronic obstructive pulmonary disease, unspecified; E78.49 Other hyperlipidemia; I73.9 Peripheral vascular disease, unspecified; K21.9 Gastro-esophageal reflux disease without esophagitis; R01.1 Cardiac murmur, unspecified; Z86.711 Personal history of pulmonary embolism; I25.2 Old myocardial infarction; Z79.899 Other long term (current) drug therapy
CPT/HCPCS: 36415; 80061; 80076

== ENCOUNTER 2020-10-29 13:25 | Emergency (ER) | payer MEDICARE, OTHER ==
[2020-10-29 14:00] VITALS: BP 125/60
--- NOTE | 2020-10-29 14:33 | ER Document Report ---
ED Skin Rash/Insect Bite/Abscs - General Chief Complaint: Allergic Reaction Stated Complaint: POSSIBLE ALLERGIC REACTION Time Seen by Provider: 10/29/20 14:13 Primary Care Provider: TED STRAUSS MD [ACTIVE STAFF] - Follow up as needed Mode of Arrival: Ambulatory Information source: Patient Notes: Patient is a 80-year-old female comes emergency room complaining of having a rash. Patient states that it started 2 days ago and is moderately painful. 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 But she does admit she has not given her much chance. She was afraid that this may be causing an allergic reaction. Patient denies any increasing shortness of breath no nausea vomiting or diarrhea. But she does state that the rash on her right side under her right breast and side is tingly and painful. Patient does state that she got the shingles vaccine. TRAVEL OUTSIDE OF THE [place] IN LAST 30 DAYS: No - HPI Patient complains to provider of: Skin rash/lesion Onset: Other - 2 days Onset/Duration: Gradual Quality of pain: Achy, Burning, Sharp Severity: Moderate Pain Level: 3 Skin Character: Erythema, Lesion, Papules, Rash Skin Temperature: Warm Quality of rash: Painful Identify cause: Yes - Zoster Similar symptoms previously: No Recently seen / treated by doctor: No - Related Data Allergies/Adverse Reactions: amoxicillin Allergy (Severe, Verified 10/29/20 14:15) clavulanic acid [From Augmentin] Allergy (Severe, Verified 10/29/20 14:15) ipratropium Allergy (Severe, Verified 10/29/20 14:15) ciprofloxacin [From Cipro] Allergy (Intermediate, Verified 10/29/20 14:15) ezetimibe [From Zetia] Allergy (Intermediate, Verified 10/29/20 14:15) simvastatin Allergy (Intermediate, Verified 10/29/20 14:15) clarithromycin [From Biaxin] Adverse Reaction (Mild, Verified 10/29/20 14:15) lisinopril Adverse Reaction (Mild, Verified 10/29/20 14:15) Past Medical History - General Information source: Patient - Social History Smoking Status: Former Smoker Cigarette use (# per day): No Chew tobacco use (# tins/day): No Smoking Education Provided: No Frequency of alcohol use: None Drug Abuse: None Lives with: Spouse/Significant other Family History: Reviewed & Not Pertinent - Past Medical History Cardiac Medical History: Reports: Hx Heart Attack, Hx Hypercholesterolemia, Hx Hypertension Pulmonary Medical History: Reports: Hx COPD - Patient states that her job molder mentioned to monitor left lower lung Denies: Hx Asthma Neurological Medical History: Denies: Hx Cerebrovascular Accident, Hx Seizures Renal/ Medical History: Denies: Hx Peritoneal Dialysis GI Medical History: Reports: Hx Gastroesophageal Reflux Disease, Hx Hiatal Hernia. Denies: Hx Hepatitis, Hx Ulcer Infectious Medical History: Denies: Hx Hepatitis Past Surgical History: Reports: Hx Cardiac Catheterization, Hx Cholecystectomy, Hx Coronary Stent - 1 performed in 2011, 1 performed in 2014. Denies: Hx Hysterectomy, Hx Mastectomy, Hx Open Heart Surgery - STENTS X2, Hx Pacemaker - Immunizations Hx Pneumococcal Vaccination: 11/10/17 Review of Systems - Review of Systems Constitutional: No symptoms reported EENT: No symptoms reported Cardiovascular: No symptoms reported Respiratory: No symptoms reported Gastrointestinal: No symptoms reported Genitourinary: No symptoms reported Female Genitourinary: No symptoms reported Musculoskeletal: No symptoms reported Skin: See HPI, Rash Hematologic/Lymphatic: No symptoms reported Neurological/Psychological: No symptoms reported -: Yes All other systems reviewed and negative Physical Exam - Vital signs Vitals: Temp Pulse Resp BP Pulse Ox 98.3 F 81 20 125/60 93 10/29/20 13:58 10/29/20 13:58 10/29/20 13:58 10/29/20 13:58 10/29/20 13:58 Interpretation: Normal - Notes Notes: PHYSICAL EXAMINATION: GENERAL: Well-appearing, well-nourished and in no acute distress. HEAD: Atraumatic, normocephalic. EYES: Pupils equal round and reactive to light, extraocular movements intact, conjunctiva are normal. NECK: Normal range of motion, supple without lymphadenopathy LUNGS: Auscultation patient's lungs show bilateral breath sounds breath sounds decreased throughout but no rhonchi rales or wheeze are heard in auscultation. HEART: Regular rate and rhythm without murmurs Musculoskeletal: Normal range of motion, no pitting or edema. No cyanosis. NEUROLOGICAL: Normal speech, normal gait. Normal sensory, motor exams PSYCH: Normal mood, normal affect. SKIN: Examination patient's right side of her body running from mid axillary line around underneath her breast shows a presentation of herpetic type description with macular base and papules some already drying and scabbed over. Tender to palpate. Course - Re-evaluation Re-evalutation: 10/29/20 14:31 Patient was really requesting for us to change her back to her Advair however I discussed with her she is not given the trilogy enough time and that this is not an allergic reaction. She does have a job molder and he will be in his office tomorrow so I informed her she needs to contact him to discuss about changing the medication again. As far as her rash on the right side it does have a presentation of herpes zoster and we will treat her with antiviral and Neurontin. - Vital Signs Vital signs: Temp Pulse Resp BP Pulse Ox 98.3 F 81 20 125/60 93 10/29/20 13:58 10/29/20 13:58 10/29/20 13:58 10/29/20 13:58 10/29/20 13:58 - Laboratory Results Critical Laboratory Results Reviewed: No Critical Results - Radiology Results Critical Radiology Results Reviewed: No Critical Results Discharge - Discharge Clinical Impression: Herpes zoster Qualifiers: Herpes zoster complications: without complications Qualified Code(s): B02.9 - Zoster without complications Condition: Stable Disposition: HOME, SELF-CARE Instructions: Shingles ([facility]) Additional Instructions: As we discussed currently you are contagious with your rash having wet type of lesions as well as dry lesions. You can transmit this by touching it and touching someone else or by rubbing up against them with the open lesions. Wash your hands often and keep the area covered. As we discussed I am placing you on 2 medications one is an antiviral and the other is a medication will help with the pain and discomfort. You need to make appointment with your primary care provider for further intervention and following. Should you have any concerns or problems over the weekend you can return to ER for reevaluation. Prescriptions: Gabapentin [Neurontin 300 mg Capsule] 300 mg PO ASDIR #30 capsule Valacyclovir HCl [Valacyclovir] 1,000 mg PO Q8 #21 tablet Referrals: TED STRAUSS MD [ACTIVE STAFF] - Follow up as needed
== END 2020-10-29 14:30 | disposition home or self-care (01) ==
LOC: ER 13:25
DX: B02.9 Zoster without complications (principal); R21 Rash and other nonspecific skin eruption; E78.00 Pure hypercholesterolemia, unspecified; I10 Essential (primary) hypertension; J44.9 Chronic obstructive pulmonary disease, unspecified; Z88.0 Allergy status to penicillin; I25.2 Old myocardial infarction
CPT/HCPCS: 99283

== ENCOUNTER 2020-11-05 14:05 | Emergency (ER) | payer MEDICARE, OTHER ==
--- NOTE | 2020-11-05 14:46 | ER Document Report ---
HPI - HPI Patient complains to provider of: shingles pain Time Seen by Provider: 11/05/20 14:32 Context: 80-year-old female presents to the emergency room complaining of persistent pain from shingles. Patient was seen here on 10/29 and was diagnosed with shingles discharged home on gabapentin and valacyclovir still complaining of persistent pain. States the rash is improving but the pain has not improved. Denies any fevers, no shortness of breath, no difficulty breathing. Has not followed up with her primary care physician. Associated Symptoms: None Exacerbated by: Denies Relieved by: Denies Similar symptoms previously: No Recently seen / treated by doctor: Yes - Seen here 10/29 - ROS Systems Reviewed and Negative: Yes All other systems reviewed and negative - CONSTITUTIONAL Constitutional: DENIES: Fever - EENT EENT: DENIES: Sore Throat - NEURO Neurology: DENIES: Weakness - RESPIRATORY Respiratory: DENIES: Trouble Breathing, Coughing - REPRODUCTIVE Reproductive: DENIES: : - DERM Skin Color: Erythema Skin Problems: Rash Past Medical History - General Information source: Patient - Social History Smoking Status: Former Smoker Frequency of alcohol use: None Family History: Reviewed & Not Pertinent - Past Medical History Cardiac Medical History: Reports: Hx Heart Attack, Hx Hypercholesterolemia, Hx Hypertension Pulmonary Medical History: Reports: Hx COPD - Patient states that her director erp mentioned to monitor left lower lung Denies: Hx Asthma Neurological Medical History: Denies: Hx Cerebrovascular Accident, Hx Seizures Renal/ Medical History: Denies: Hx Peritoneal Dialysis GI Medical History: Reports: Hx Gastroesophageal Reflux Disease, Hx Hiatal Hernia. Denies: Hx Hepatitis, Hx Ulcer Infectious Medical History: Denies: Hx Hepatitis Past Surgical History: Reports: Hx Cardiac Catheterization, Hx Cholecystectomy, Hx Coronary Stent - 1 performed in 2011, 1 performed in 2014. Denies: Hx Hysterectomy, Hx Mastectomy, Hx Open Heart Surgery - STENTS X2, Hx Pacemaker - Immunizations Hx Pneumococcal Vaccination: 11/10/17 Vertical Provider Document - CONSTITUTIONAL Agree With Documented VS: Yes Exam Limitations: No Limitations General Appearance: Mild Distress - INFECTION CONTROL TRAVEL OUTSIDE OF THE [place] IN LAST 30 DAYS: No - HEENT HEENT: Atraumatic, Normocephalic - NECK Neck: Normal Inspection, Supple - RESPIRATORY Respiratory: Breath Sounds Normal, No Respiratory Distress - CARDIOVASCULAR Cardiovascular: Regular Rate, Regular Rhythm - NEURO Level of Consciousness: Awake, Alert Motor/Sensory: No Motor Deficit, No Sensory Deficit - DERM Integumentary: Warm, Dry, Rash - Erythematous breasted vesicular rash noted right side abdomen under the breast to right midline. There is no open sores. They are nontender to palpation. Course - Re-evaluation Re-evalutation: 11/05/20 14:41 Patient presents to the emergency room with worsening persistent pain from her shingles. Has not followed up yet with her primary care physician. Patient requesting stronger medications for pain. E force was reviewed. Okay for prescription. Patient was counseled to stop the gabapentin and take the tramadol instead of the gabapentin. Counseled importance of outpatient follow- up with her primary care physician as it is possible. Patient was given strict return to the emergency room guidelines. Return for any new or worsening symptoms. All questions were answered. Patient verbalized understanding and agrees with plan of care. 11/05/20 14:53 11/05/20 16:29 - Laboratory Results Critical Laboratory Results Reviewed: No Critical Results - Radiology Results Critical Radiology Results Reviewed: No Critical Results Discharge - Discharge Clinical Impression: Shingles Qualifiers: Herpes zoster complications: without complications Qualified Code(s): B02.9 - Zoster without complications Condition: Stable Disposition: HOME, SELF-CARE Instructions: Shingles ([facility]) Additional Instructions: Stop the gabapentin and start the tramadol. Do not take both gabapentin and tramadol. Continue with the valacyclovir outpatient follow-up as previously discussed. Return to the emergency room for any new or worsening symptoms. Prescriptions: Tramadol HCl [Ultram 50 mg Tablet] 50 mg PO Q4HP PRN #12 tab PRN Reason: For Pain Referrals: MONIK GAVIRIA MD [Primary Care Provider] - Follow up tomorrow
[2020-11-05 14:51] VITALS: BP 131/61
== END 2020-11-05 15:03 | disposition home or self-care (01) ==
LOC: ER 14:05
DX: B02.9 Zoster without complications (principal); I10 Essential (primary) hypertension; J44.9 Chronic obstructive pulmonary disease, unspecified; Z87.891 Personal history of nicotine dependence
CPT/HCPCS: 99283